=== PATIENT | female | born 1955 | race Asian ===

== ENCOUNTER 2022-03-27 09:20 | Outpatient (CLI) | payer OTHER | END 2022-03-27 19:19 | disposition home or self-care (01) | LOC: MAMMO 09:20 | PROVIDERS: ATTEND Internal Medicine | DX: Z12.31 Encounter for screening mammogram for malignant neoplasm of breast (principal); Z13.820 Encounter for screening for osteoporosis; N95.8 Other specified menopausal and perimenopausal disorders ==

== ENCOUNTER 2022-06-09 16:13 | Emergency (ER) | payer OTHER ==
[~2022-06-09] VITALS: Ht 190.5 cm; Wt 97.5 kg
[2022-06-09 17:30] LABS: PLATELET COUNT 156 K/uL (152-353)
[2022-06-09 17:39] LABS: POTASSIUM 3.8 mmol/L (3.6-5.2)
[2022-06-09 18:18] VITALS: BP 170/900; TEMP 98.6
== END 2022-06-09 18:31 | disposition home or self-care (01) ==
LOC: ED 16:13
PROVIDERS: Emergency Medicine
DX: R05.8 Other specified cough (principal); Z20.822 Contact with and (suspected) exposure to COVID-19; N18.6 End stage renal disease; Z99.2 Dependence on renal dialysis
CPT/HCPCS: 80048; 85027; 87635; 87651; 99283; U0003

== ENCOUNTER 2022-11-04 20:06 | Emergency (ER) | payer OTHER ==
[~2022-11-04] VITALS: Ht 190.5 cm; Wt 97.5 kg
[2022-11-04 21:36] LABS: PLATELET COUNT 162 K/uL (152-353)
[2022-11-04 21:48] LABS: POTASSIUM 3.4 mmol/L (3.6-5.2)
[2022-11-04 22:45] VITALS: BP 174/72; TEMP 98.7
== END 2022-11-04 22:45 | disposition home or self-care (01) ==
LOC: ED 20:06
PROVIDERS: Emergency Medicine Emergency Medical Services
DX: M47.892 Other spondylosis, cervical region (principal)
CPT/HCPCS: 36415; 80048; 85027; 93005; 99283

== ENCOUNTER 2023-04-16 16:43 | Emergency (ER) | payer OTHER ==
[~2023-04-16] VITALS: Ht 160 cm; Wt 99.8 kg
[2023-04-16 16:49] VITALS: TEMP 98.5
[2023-04-16 17:36] LABS: PLATELET COUNT 133 K/uL (152-353)
[2023-04-16 17:52] LABS: POTASSIUM 3.3 mmol/L (3.6-5.2)
[2023-04-16 21:42] VITALS: BP 164/84
== END 2023-04-16 22:10 | disposition short-term general hospital (02) ==
LOC: ED 16:43
PROVIDERS: Family Medicine
DX: R41.82 Altered mental status, unspecified (principal); R06.02 Shortness of breath; N18.6 End stage renal disease; Z99.2 Dependence on renal dialysis; E87.6 Hypokalemia
CPT/HCPCS: 36415; 80053; 83605; 83880; 84484; 85027; 85379; 87040; 93005; 99285

== ENCOUNTER 2023-05-27 07:53 | Outpatient (CLI) | payer OTHER | END 2023-05-27 20:34 | disposition home or self-care (01) | LOC: MAMMO 07:53 | PROVIDERS: ATTEND Nurse Practitioner Family | DX: Z12.31 Encounter for screening mammogram for malignant neoplasm of breast (principal) ==

== ENCOUNTER 2023-06-16 14:01 | Outpatient (CLI) | payer OTHER | END 2023-06-16 21:23 | disposition home or self-care (01) | LOC: US 14:01 | PROVIDERS: ATTEND Nurse Practitioner Family | DX: R10.829 Rebound abdominal tenderness, unspecified site (principal) | CPT/HCPCS: 36415; 82565; 84520 ==